=== PATIENT | male | born 1940 | race Two or more races ===

== ENCOUNTER 2020-03-15 07:28 | Day surgery (SDC) | payer MEDICARE, SELFPAY ==
[2020-03-15 07:25] VITALS: BP 112/69; PULSE 57; RESP 18; TEMP 36.5; O2SAT 97
[2020-03-15] MEDS: Tropicam./Phenyleph. (1/2.5%) 5 ML BTL OD ×3 (07:53→08:03)
[2020-03-15] MEDS: Lidocaine 2% Jelly 6 ML SYR (08:50)
[2020-03-15] MEDS: Povidone-Iodine Ophth 30 ML BTL (08:50)
[2020-03-15] MEDS: Tetracaine 0.5% 4 ML BTL OD (08:50)
[2020-03-15] MEDS: Lidocaine 1% Pres-Free 5 ML VIAL (08:55)
[2020-03-15] MEDS: Duovisc Viscoelastic System EACH 1 EACH (08:55)
[2020-03-15] MEDS: Balanced Salt Soln.-PLUS 500 ML BAG (08:55)
[2020-03-15] MEDS: Moxifloxacin-PF 1 MG/ML VIAL (09:13)
--- NOTE | 2020-03-15 09:19 | W.PM.DSUDISC ---
Discharge Plan Disposition Patient Disposition: HOME Condition: Good Discharge Details Attending Provider: Emmanuel Melgoza Primary Care Provider: Rodrigue Gonzalez Home Meds and New Rx's Prescriptions: No Action saw palmetto 80 mg Capsule 40 mg PO DAILY RF: 0 calcium carbonate [Calcium 500] 500 mg calcium (1,250 mg) Tablet 500 mg PO DAILY RF: 0 triamcinolone acetonide 0.1 % Cream 1 applic TOPICAL BID RF: 0 Discharge Instructions Stand Alone Forms: Post-op Topical Cataract, Monica Mcginnis (DSU) Discharge Orders Discharge Orders: Discharge Order (Routine); Ordered 03/15/20 Ordered By: Emmanuel Melgoza DS: Diagnosis Discharge Diagnosis (1) Nuclear sclerotic cataract of right eye: Status: Resolved
--- NOTE | 2020-03-15 09:21 | W.PM.OP ---
Date of service: 03/15/20 Time of Service: 09:21 Operative Note Operative Note DATE OF PROCEDURE: 03/15/20 PRE-OP DIAGNOSIS: Nuclear cataract, right eye POST-OP DIAGNOSIS: same PROCEDURE: Cataract extraction using phacoemulsification with intraocular lens implant, right eye SURGEON: Emmanuel Melgoza ANESTHESIA: MAC and local (sub-tenon's anesthetic infiltration) ESTIMATED BLOOD LOSS: 0 PATHOLOGY: none sent COMPLICATIONS: None Patient was transported to: same day Patient's condition: stable Implants: Dragan [employer]agan [employer] / [employer] Tecnis [id number] intraocular lens Indications: Progressive decreased vision due to cataract, right eye Procedure Description: CATARACT SURGERY OPERATIVE REPORT PREOPERATIVE DIAGNOSIS: Nuclear cataract, right eye POSTOPERATIVE DIAGNOSIS: Same OPERATION: Cataract extraction using phacoemulsification with posterior chamber intraocular lens implant, right eye. IOL: IOL Educational Manager/Model: [employer] Vision / KEYON Tecnis ZCB00 IOL Power: + +20.50 diopters IOL Serial Number: [id number] Optic Diameter: 6.0mm Haptic/Overall Diameter: 13.0mm PHACO INFO: Willy P[employer]Tesla Magnetic Therapiesurion Vision System with OZil and Active Fluidics Cumulative Dispersed Energy (CDE): 15.34 seconds SURGEON: Emmanuel Melgoza MD, POLLY ANESTHESIA: Monitored Anesthesia Care (MAC), with local sub-tenon's anesthetic infiltration COMPLICATIONS: None SPECIMENS: None INDICATIONS FOR PROCEDURE: The patient is a 79-year-old gentleman with history of diminished visual acuity in his right eye. He is noted to have a moderate nuclear cataract. The option of cataract surgery was offered to the patient and he wished to proceed. PROCEDURE: The correct surgical eye was identified and marked as the right eye and the pupil was dilated in the preoperative area using mydriatics and cycloplegics. The dilated pupil size was 6.5 mm. No oral sedation was given the patient was brought to the operating room where cardiopulmonary monitoring was instituted and surgical time-out was performed, confirming the correct operative eye and IOL power. Topical anesthesia was administered and ophthalmic povidone-iodine 5% was instilled into the conjunctival fornices. Lidocaine gel was applied to the cornea and the jody-ocular area was prepped with Betadine 10% solution and draped in the usual sterile fashion for intraocular surgery, including an aperture drape. A Tegaderm transparent film dressing was cut in half and used to cover the lashes and lid margins. Care was taken to sequester the lashes and lid margins under the Tegaderm dressing. A lid speculum was placed between the lids of the operative eye and the Narendra-Garrick operating microscope was maneuvered into position. Stephen scissors were then used to make a conjunctival buttonhole approximately 6mm posterior to the limbus in the inferonasal quadrant. Blunt dissection was carried out to expose bare sclera, and a blunt-tipped sub-tenon?s anesthesia cannula was introduced and passed posteriorly along the globe where non-preserved plain lidocaine was injected into posterior sub-Tenon?s space. A sideport knife was used to make a paracentesis port inferiortemporally. Intraocular phenylephrine/lidocaine was injected into the anterior chamber. The anterior chamber was then filled with viscoelastic. A 2.4mm keratome knife was used to create a half-thickness groove at the limbus and then to construct a three-plane near-clear corneal tunnel extending 2.0mm into clear cornea in the superiortemporal position. . A flap was raised on the anterior capsule and capsulorhexis forceps were used to complete a continuous curvilinear capsulorhexis of 5.0 mm. Balanced salt solution was then used to perform cortical cleaving hydrodissection and nuclear hydrodelineation until the lens could be freely rotated within the capsular bag. The lens nucleus was then disassembled and removed within the capsular bag and iris plane using phacoemulsification. Residual cortical material was removed using the I/A handpiece. The posterior capsule was carefully polished to remove as much residual lens epithelial cells as safely possible. The capsular bag was then inflated and the anterior chamber deepened with viscoelastic. The lens implant described above was inserted into the capsular bag using the KEYON Bethesda Injector. A Kuglen hook was used to dial the IOL into position. Residual viscoelastic was then removed first from posterior to the IOL, then from the anterior chamber using the I/A handpiece. The lens implant was noted to center nicely within the capsular bag. The incisions were stromally hydrated, and the anterior chamber was reformed using BSS. Then 0.5cc of moxifloxacin 1.0mg/ml were injected into the capsular bag and anterior chamber. The incisions were checked with a Weck spear and found to be secure. Several drops of ophthalmic povidone-iodine 5% were then applied to the eye followed by two drops of Imprimis combination prednisolone/moxifloxacin/nepafenac solution. The drapes were removed and a clear plastic protective eye shield was placed over the eye. The patient was then returned to [facility] Surgery in stable condition.
== END 2020-03-15 09:50 | disposition home or self-care (01) ==
PROVIDERS: PCP Internal Medicine; Visit Provider Ophthalmology
PROC: (CPT 66984; principal; 2020-03-15 09:00)
DX: H25.11 Age-related nuclear cataract, right eye (principal)
CPT/HCPCS: 66984; V2632

== ENCOUNTER 2022-01-06 09:17 | Outpatient (REF) | payer MEDICARE, SELFPAY ==
[2022-01-06 17:01] LABS: Calculated LDL 112 mg/dL (<100); Cholesterol 207 mg/dL (<200); Glucose 93 mg/dL (74-106); HDL Cholesterol 83 mg/dL (40-60); Triglyceride 63 mg/dL (<150)
[2022-01-08 08:48] LABS: Lyme Ab w Rflx to Lyme Confirm Negative (Negative)
[2022-01-08 14:45] LABS: Apolipoprotein B, S 77 mg/dL
[2022-01-10 15:19] LABS: Anaplasma phagocytophilum Negative (Negative); B. miyamotoi PCR Negative (Negative); Babesia divergens/MO-1 Negative (Negative); Babesia duncani Negative (Negative); Babesia microti Negative (Negative); Ehrlichia chaffeensis Negative (Negative); Ehrlichia ewingii/canis Negative (Negative); Ehrlichia muris eauclairensis Negative (Negative)
== END 2022-01-06 09:18 | disposition home or self-care (01) ==
LOC: NCHCN 09:17
PROVIDERS: Family Medicine; PCP Internal Medicine; Visit Provider Internal Medicine
DX: M10.9 Gout, unspecified (principal); L11.1 Transient acantholytic dermatosis [Grover]; N40.1 Benign prostatic hyperplasia with lower urinary tract symptoms; E78.89 Other lipoprotein metabolism disorders; Z11.8 Encounter for screening for other infectious and parasitic diseases; R79.89 Other specified abnormal findings of blood chemistry
CPT/HCPCS: 80061; 82172; 82947; 87798; 86618

== ENCOUNTER 2022-02-03 11:29 | Emergency (ER) | payer MEDICARE, SELFPAY ==
[2022-02-03 11:33] VITALS: BP 112/61; PULSE 76; RESP 20; TEMP 36.8; O2SAT 95
--- NOTE | 2022-02-03 12:04 | W.ED.GENAD ---
Discharge Plan Disposition Patient Disposition: HOME Condition: Stable Discharge Details Clinical Impression: Pneumonia Primary Care Provider: Temo Zaragoza ED Provider: Barbara Jimenez Home Meds and New Rx's Prescriptions: New amoxicillin-pot clavulanate 875-125 mg tablet 1 tab PO BID 7 Days Qty: 14 0RF benzonatate 100 mg capsule 100 mg PO TID PRN (Reason: cough) Qty: 10 0RF albuterol sulfate 90 mcg/actuation HFA aerosol inhaler 2 puff inhalation Q6H PRN (Reason: shortness of breath or wheezing) Qty: 8.5 0RF Continued vit D3-folic qcrf-J0-D2-B12 2,000-800-0.32 unit-mcg-mg Tablet PO saw palmetto 80 mg Capsule 40 mg PO DAILY calcium carbonate [Calcium 500] 500 mg calcium (1,250 mg) Tablet 500 mg PO DAILY triamcinolone acetonide 0.1 % Cream 1 applic TOPICAL BID Discharge Instructions Instructions: Pneumonia (ED) Additional Instructions: Your chest x-ray today showed that you have a left lower lobe pneumonia. Your COVID, influenza and RSV test today are negative. Prescriptions for antibiotics, and inhaler and cough medication have been sent electronically to your pharmacy to take as directed. Drink plenty of fluids and get plenty of rest. Follow-up with your primary care doctor in 1 week. Return to the emergency department with any worsening or new concerning symptoms. Discharge Data Discharge Date/Time-TO BE ENTERED AT DEPARTURE: 02/03/22 15:29 Discharge Physician: Barbara Jimenez Medical Decision Making 1145 -- 81-year-old male with a history of osteoarthritis, gout and BPH presents for intermittent fever, productive cough and shortness of breath for the past week. Denies pleuritic chest pain at this time. Vitals within normal limits. O2 saturations 95% on room air. Patient coughing during lung exam and some minimal wheeze noted but this cleared and lung sounds clear throughout on reexam. Normal ENT exam. Differential diagnosis includes COVID, influenza, bronchitis or pneumonia. History and presentation does not appear consistent with ACS, PE or dissection. Will give a DuoNeb, fluvid swab and chest x-ray and reassess. 1435 -- Pt reassessed -- he admits to some improvement of cough after DuoNeb. Reassessment of lung sounds, no wheezing noted. His oxygen saturation is mid-high 90s on room air. Patient is sitting comfortably in the room reading a book and appears in no acute distress. Fluvid negative. CXR notes a LLL infiltrate. Patient was given a dose of Augmentin here and prescriptions for Augmentin, cough medication and inhaler were sent electronically to his pharmacy. Advised to increase fluids and rest. Advised to follow up with the primary care doctor for re-evaluation. Usual and customary return precautions given prior to discharge. Medical Records Medical records reviewed: Yes I reviewed the patient's medical records. Imaging Data Radiologic Study: Radiologist's impression: XR CHEST 2V PA ? LATERAL CLINICAL HISTORY: ? cough, r/o acute disease. ? TECHNIQUE:? 2D digital imaging was performed. COMPARISON:? CR CHEST 2 VIEWS PA,LAT from 10/03/2012 FINDINGS: 2 views: Heart size is normal.? The mediastinum is not widened. Hyperinflation again noted.? There appears to be some infiltrate in the left lower lobe retrocardiac region.? Right lung is clear.? Mild blunting of left costophrenic angle. No pneumothorax.? No pulmonary edema. IMPRESSION: Left lower lobe infiltrate.? Possible small left pleural effusion. Lab Data Lab results reviewed: Yes I reviewed the patient's lab results. Labs: Laboratory Tests Range/Units 02/03/22 12:32 COVID-19 Source Not Applicable SARS-CoV-2 (PCR) (Negative) Negative Influenza Type A (PCR) (Negative) Negative Influenza Type B (PCR) (Negative) Negative RSV (PCR) (Negative) Negative HPI General Mode of arrival: ambulatory. Date/Time Provider Initiated Documentation: 02/03/22 11:30. Limitations to Documentation: no limitations. Information obtained by: patient. HPI Narrative: Patient is an 81yo M who presents to the ED w/ a c/o productive cough, shortness of breath and fatigue for the past week. Patient states he traveled to [place] recently and developed a cold with symptoms of runny nose and cough. He states his developed similar symptoms but then recovered. He states since then his cough has worsened and is productive of green sputum and he has become more short of breath. Patient states when he went to take his dogs out for a walk he became more fatigued and short of breath. He states he has had low-grade fevers of 99-100. He is taking qtpk-frk-vpxqbcg cough and cold medication without relief. He has taken 3 at home COVID test which were negative. Related Data Home Medications Medication Instructions Recorded Confirmed calcium carbonate 500 mg calcium 500 mg PO DAILY 03/13/20 03/15/20 (1,250 mg) tablet (Calcium 500) saw palmetto 80 mg capsule 40 mg PO DAILY 03/13/20 03/15/20 triamcinolone acetonide 0.1 % 1 applic topical BID 03/14/20 03/15/20 topical cream albuterol sulfate 90 mcg/actuation 2 puff inhalation Q6H PRN 02/03/22 aerosol inhaler shortness of breath or wheezing #8.5 grams amoxicillin 875 mg-potassium 1 tab PO BID 7 days #14 tabs 02/03/22 clavulanate 125 mg tablet benzonatate 100 mg capsule 100 mg PO TID PRN cough #10 caps 02/03/22 vit D3-folic acid-vit B2-B6-B12 tab PO 02/03/22 2,000 unit-800 mcg-0.32 mg tablet Previous Rx's Medication Instructions Recorded albuterol sulfate 90 mcg/actuation 2 puff inhalation Q6H PRN 02/03/22 aerosol inhaler shortness of breath or wheezing #8.5 grams amoxicillin 875 mg-potassium 1 tab PO BID 7 days #14 tabs 02/03/22 clavulanate 125 mg tablet benzonatate 100 mg capsule 100 mg PO TID PRN cough #10 caps 02/03/22 Allergies Allergy/AdvReac Type Severity Reaction Status Date / Time Sulfa (Sulfonamide AdvReac Intermediate GI UPSET Unverified 02/03/22 11:38 Antibiotics) General Stated Complaint: RespSymp GAY: 3 Review of Systems All systems reviewed & are unremarkable except as noted in HPI and below Constitutional Constitutional: Reports as per HPI, Denies chills and Denies fever(s) Eyes Eyes: Denies blurry vision ENT Ears, Nose, Mouth, and Throat: Denies dizziness, Denies sore throat and Denies throat swelling Cardiovascular Cardiovascular: Denies chest pain and Reports dyspnea Respiratory Respiratory: Reports cough and Reports dyspnea Gastrointestinal Gastrointestinal: Denies abdominal pain, Denies diarrhea and Denies vomiting Genitourinary Genitourinary: Denies hematuria and Denies dysuria Musculoskeletal Musculoskeletal: Denies back pain and Denies numbness Integumentary/Breasts Skin/Breast: Denies lesions and Denies rash Neurologic Neurologic: Denies dizziness, Denies localized weakness and Denies numbness Allergic/Immunologic Allergic/Immunologic: Denies throat swelling PFSH All Active Problems (Updated 02/03/22 @ 14:50 by Barbara Jimenez DO) Pneumonia (Acute) Medical History (Updated 02/03/22 @ 14:50 by Barbara Jimenez DO) Arthritis Basal cell carcinoma BPH with obstruction/lower urinary tract symptoms Cataract, right DJD (degenerative joint disease) Gout Jesus Manuel's disease History of tobacco use Hx of adenomatous colonic polyps Low back pain Osteoarthritis of left knee Perennial allergic rhinitis Right hip pain Umbilical hernia Surgical History (Updated 03/15/20 @ 09:20 by Emmanuel Melgoza MD) Colonoscopy - MAC (10/05/17) Skin Cancer Removal BCC [place]OVED FROM [facility]ST [facility] [place]SE[place] [place] [facility] Family History Mother , OLD AGE at age 96. No problems noted. Father Essential hypertension Stroke Sister No problems noted. Son No problems noted. Son No problems noted. FAMILY HISTORY Essential hypertension Social History Smoking/Tobacco Use Status: Former Tobacco Use Quit Date: 04/12/84 Smoking risk assessment performed?: Yes Alcohol Intake: former Drug use: Never Substance use type: does not use Do you feel safe at home: Yes Do you feel safe in your relationship?: Yes Exam Const General: cooperative and no acute distress Orientation: alert, awake and oriented x3 HENMT Head: normal to inspection Ears: hearing grossly normal bilaterally, external ears normal and TM's normal bilaterally General nose exam: external nose normal Face and sinus: normal facial exam Mouth: oral mucosae normal Throat: posterior oropharynx normal Eyes General: appearance normal, both eyes and all related structures Pupils: PERRL EOM: EOM intact bilaterally Neck Neck: normal visual inspection and No submandibular swelling Lymphatic: no lymphadenopathy noted Chest Chest: normal inspection of the chest and no tenderness Resp Effort & Inspection: normal respiratory effort and able to speak in complete sentences Auscultation: clear to auscultation bilaterally Cardio Rate: regular rate Rhythm: regular rhythm GI Inspection: normal to inspection Palpation: soft, not firm, not rigid and nontender Auscultation: normal bowel sounds Male General Exam: Yes normal external exam Skin General skin exam: no rashes or lesions noted Neuro General: patient alert, patient awake and patient oriented x3 Cognition: normal cognition Speech: speech normal Motor: muscle tone normal throughout Sensory Exam: no sensory deficits noted Extrem General: normal to inspection and full ROM Psych Appearance: grossly normal Mental Status: mental status grossly normal Speech and Movement: speech and movement normal Affect: normal affect Course Vital Signs Vital signs: Vital Signs Temperature 98.3 F 02/03/22 11:33 Pulse 76 02/03/22 11:33 Respiratory Rate 20 02/03/22 11:33 Blood Pressure 112/61 02/03/22 11:33 Pulse Oximetry 95 02/03/22 11:33 Temperature 98.3 F 02/03/22 11:33 Temperature Source Oral 02/03/22 11:33 Pulse 76 02/03/22 11:33 Respiratory Rate 20 02/03/22 11:33 Respiratory Effort Non-Labored 02/03/22 11:43 Respiratory Depth Normal 02/03/22 11:43 Blood Pressure 112/61 02/03/22 11:33 Blood Pressure Position Sitting 02/03/22 11:33 Pulse Oximetry 95 02/03/22 11:33 Oxygen Delivery Method Room Air 02/03/22 11:33 Oxygen Flow Rate 0 02/03/22 11:33
--- NOTE | 2022-02-03 12:15 | DI.RAD_ITS ---
Exam(s) XR CHEST 2V PA LATERAL EXAM: XR CHEST 2V PA LATERAL CLINICAL HISTORY: cough, r/o acute disease. TECHNIQUE: 2D digital imaging was performed. COMPARISON: CR CHEST 2 VIEWS PA,LAT from 10/03/2012 FINDINGS: 2 views: Heart size is normal. The mediastinum is not widened. Hyperinflation again noted. There appears to be some infiltrate in the left lower lobe retrocardiac region. Right lung is clear. Mild blunting of left costophrenic angle. No pneumothorax. No pulmonary edema. IMPRESSION: Left lower lobe infiltrate. Possible small left pleural effusion. DATA REPOSITORY: RADIATION DOSE DELIVERED:
[2022-02-03] MEDS: Albuterol/Ipratropium 3 ML UPD VIAL UPD (12:39)
[2022-02-03 13:21] LABS: COVID-19 PCR Negative (Negative); Influenza A PCR Negative (Negative); Influenza B PCR Negative (Negative); RSV PCR Negative (Negative)
[2022-02-03] MEDS: Amoxicillin 875/Clav. 125 TAB PO (14:53)
== END 2022-02-03 15:29 | disposition home or self-care (01) ==
PROVIDERS: Emergency Provider Physician Assistant; PCP Family Medicine
DX: J18.9 Pneumonia, unspecified organism (principal); Z20.822 Contact with and (suspected) exposure to COVID-19; Z87.891 Personal history of nicotine dependence
CPT/HCPCS: 87637; 94640; 99283; 99284; 71046; J7620

== ENCOUNTER 2022-09-09 14:42 | Outpatient (REF) | payer MEDICARE, SELFPAY ==
[2022-09-09 21:00] LABS: Abs Immature Grans 0.03 10^3/uL (0.0-0.06); Absolute Basophil Count 0.06 10^3/uL (0.0-0.2); Absolute Eosinophil Count 0.14 10^3/uL (0.0-0.7); Absolute Lymphocyte Count 3.41 10^3/uL (1.2-3.4); Absolute Monocyte Count 1.41 10^3/uL (0.1-0.8); Absolute Neutrophil Count 4.74 10^3/uL (1.2-6.7); Basophils % 0.6; Eosinophils % 1.4; HCT 45.3 % (40.0-50.0); HGB 14.6 g/dL (13.5-17.5); Immature Grans % 0.3; Lymphocytes % 34.8; MCH 29.3 pg (27.0-33.0); MCHC 32.2 % (32.0-36.0); MCV 91 fL (80-95); MPV 10.9 fL (8.0-11.0); Monocytes % 14.4; Neutrophils % 48.5; Platelet Count 278 10^3/uL (130-400); RBC 4.98 10^6/uL (4.36-5.78); RDW 13.3 % (11.8-14.1); RDW-SD 44.9 fL; WBC 9.79 10^3/uL (4.4-10.8)
[2022-09-09 21:26] LABS: ALT 30 U/L (16-63); AST 28 U/L (15-37); Albumin 3.4 g/dL (3.4-5.0); Alkaline Phosphatase 93 U/L (46-116); Anion Gap 8.1 mmol/L (3-11); BUN 17 mg/dL (7-18); Bilirubin, Total 0.3 mg/dL (0.2-1.0); CO2 29.9 mmol/L (21.0-32.0); CREATININE 1.1 mg/dL (0.70-1.30); Calcium 9.3 mg/dL (8.5-10.1); Chloride 102 mmol/L (98-107); Estimated GFR 67.86 (mL/min/1.73m2); Glucose 104 mg/dL (74-106); Potassium 4.7 mmol/L (3.5-5.1); Sodium 140 mmol/L (136-145); Total Protein 7.9 g/dL (6.4-8.2)
== END 2022-09-09 14:43 | disposition home or self-care (01) ==
LOC: NCHCN 14:42
PROVIDERS: PCP Family Medicine; Visit Provider Family Medicine
DX: R35.0 Frequency of micturition (principal); M25.511 Pain in right shoulder
CPT/HCPCS: 80053; 87077; 85025; 87086; 87186

== ENCOUNTER 2022-10-06 12:50 | Outpatient (REF) | payer MEDICARE, SELFPAY ==
[2022-10-08 10:11] LABS: Lyme Ab w Rflx to Lyme Confirm Negative (Negative)
[2022-10-10 22:08] LABS: Anaplasma phagocytophilum Negative (Negative); B. miyamotoi PCR Negative (Negative); Babesia divergens/MO-1 Negative (Negative); Babesia duncani Negative (Negative); Babesia microti Negative (Negative); Ehrlichia chaffeensis Negative (Negative); Ehrlichia ewingii/canis Negative (Negative); Ehrlichia muris eauclairensis Negative (Negative)
== END 2022-10-06 12:51 | disposition home or self-care (01) ==
LOC: NCHCN 12:50
PROVIDERS: PCP Family Medicine; Visit Provider Family Medicine
DX: M25.50 Pain in unspecified joint (principal)
CPT/HCPCS: 87798; 86618

== ENCOUNTER 2023-08-27 01:54 | Outpatient (CLI) | payer MEDICARE, SELFPAY ==
[2023-08-27 10:35] LABS: Abs Immature Grans 0.02 10^3/uL (0.0-0.06); Absolute Eosinophil Count 0.15 10^3/uL (0.0-0.7); Absolute Lymphocyte Count 6.19 10^3/uL (1.2-3.4); Basophils % 0.6 %; Eosinophils % 1.4 %; HCT 47.1 % (40.0-50.0); HGB 15.2 g/dL (13.5-17.5); Immature Grans % 0.2 %; Lymphocytes % 57.2 %; MCH 29.2 pg (27.0-33.0); MCHC 32.3 % (32.0-36.0); MCV 90 fL (80-95); MPV 11.1 fL (8.0-11.0); Monocytes % 5.5 %; Neutrophils % 35.1 %; Platelet Count 235 10^3/uL (130-400); RBC 5.21 10^6/uL (4.36-5.78); RDW 14.2 % (11.8-14.1); RDW-SD 47.7 fL; WBC 10.82 10^3/uL (4.4-10.8)
[2023-08-27 10:38] LABS: Absolute Basophil Count 0.06 10^3/uL (0.0-0.2)
[2023-08-27 10:45] LABS: Diff Comment Diff Reviewed; RBC Morphology Normal
[2023-08-27 11:04] LABS: ALT 25 U/L (16-63); AST 16 U/L (15-37); Albumin 3.7 g/dL (3.4-5.0); Alkaline Phosphatase 85 U/L (46-116); Anion Gap 6.6 mmol/L (3-11); BUN 19 mg/dL (7-18); Bilirubin, Total 0.6 mg/dL (0.2-1.0); CO2 30.4 mmol/L (21.0-32.0); CREATININE 1.1 mg/dL (0.70-1.30); Calcium 8.9 mg/dL (8.5-10.1); Calculated LDL 113 mg/dL (<100); Chloride 105 mmol/L (98-107); Cholesterol 227 mg/dL (<200); Estimated GFR 67.44 (mL/min/1.73m2); Glucose 102 mg/dL (74-106); HDL Cholesterol 102 mg/dL (40-60); Potassium 4.5 mmol/L (3.5-5.1); Sodium 142 mmol/L (136-145); Total Protein 7.3 g/dL (6.4-8.2); Triglyceride 60 mg/dL (<150)
== END 2023-08-27 01:55 | disposition home or self-care (01) ==
LOC: LBO 01:55
PROVIDERS: PCP Nurse Practitioner; Referring Provider Nurse Practitioner; Visit Provider Nurse Practitioner
DX: R53.83 Other fatigue (principal); R63.4 Abnormal weight loss; E78.5 Hyperlipidemia, unspecified
CPT/HCPCS: 36415; 80053; 80061; 84443; 85025

== ENCOUNTER → 2023-10-07 09:27 | Outpatient (BNVA) | payer MEDICARE, SELFPAY | PROVIDERS: PCP Nurse Practitioner; Visit Provider Physical Therapy Assistant | DX: Z12.11 Encounter for screening for malignant neoplasm of colon (principal); Z86.010 Personal history of colon polyps ==

== ENCOUNTER 2023-10-08 12:45 | Day surgery (SDC) | payer MEDICARE, SELFPAY ==
[2023-10-08 13:08] VITALS: BP 116/67; PULSE 46; RESP 16; TEMP 36.3; O2SAT 97
--- NOTE | 2023-10-08 13:39 | W.ANESPRE ---
General Info Date of Service Date Performed: 10/08/23 Height: 5 ft 11.5 in Weight: 77.3 kg Body Mass Index (BMI): 23.4 Surgical Procedure: Operation Date: 10/08/23 14:40 Proposed Procedure Side Surgeon p Cataract Extraction with IOL Implant Left Emmanuel Melgoza MD Meds Allergies and Home Medications Allergies Allergy/AdvReac Type Severity Reaction Status Date / Time Sulfa (Sulfonamide AdvReac Intermediate GI UPSET Verified 10/08/23 13:16 Antibiotics) Home Medication Medication Instructions Recorded triamcinolone acetonide 0.1 % 1 applic topical BID #30 grams 11/19/22 topical cream calcium carbonate (Calcium 500) 1,000 mg PO DAILY 07/28/23 cholecalciferol (vitamin D3) 25 25 mcg PO DAILY 07/28/23 mcg (1,000 unit) capsule saw palmetto 450 mg capsule 450 mg PO DAILY 07/28/23 bisacodyl 5 mg tablet,delayed 5 mg PO ONCE #4 tabs 10/07/23 release (Dulcolax (bisacodyl)) polyethylene glycol 3350 17 17 g PO ONCE #238 grams 10/07/23 gram/dose oral powder Current Visit Medications: Current Medications Generic Name Dose Route Start Last Admin Trade Name Freq PRN Reason Stop Dose Admin Acetaminophen 1,000 mg 10/08/23 06:00 Acetaminophen 500 Mg Tab PO 11/07/23 05:59 Q4H PRN PRN Balanced Salt Solution 500 ml 10/08/23 06:00 Balanced Salt Soln.-Plus 500 Ml Bag OP 11/07/23 05:59 DIRECTED [facility] Miscellaneous Medication 0 ml 10/08/23 06:00 Prednisolone 1%, Moxifloxacin 0.5%, Bromfenac 0.09% 5ml Btl OS 11/07/23 05:59 DIRECTED [facility] Miscellaneous Medication 0 ml 10/08/23 06:00 10/08/23 13:30 Tropicam./Phenyleph. (1/2.5%) 10 Ml Btl OS 11/07/23 05:59 1 drp DIRECTED [facility] Administration Tetracaine HCl 0 ml 10/08/23 06:00 Tetracaine 0.5% 4 Ml Btl OS 11/07/23 05:59 DIRECTED [facility] PFSH Active Problems Active Problems: Problem Status Onset Code Cortical age-related cataract, left eye H25.012 Nuclear age-related cataract, left eye H25.12 Cataract of left eye H26.9 Contact dermatitis L25.9 Nuclear sclerotic cataract of right eye H25.11 Medical History Medical History Basal cell carcinoma of face BCC [place] [place] [facility] Frequent unifocal PVCs Hx of adenomatous colonic polyps (10/05/17) Perennial allergic rhinitis Cataract, right Gout Jesus Manuel's disease Right hip pain Osteoarthritis of left knee DJD (degenerative joint disease) Umbilical hernia BPH with obstruction/lower urinary tract symptoms Arthritis History of tobacco use Low back pain Surgical History Surgical History H/O hemorrhoidectomy Skin Cancer Removal BCC [place] [facility] [place] Colonoscopy - MAC (10/05/17) Tobacco Smoking/Tobacco Use Status: Former Tobacco Use Alcohol Alcohol Intake: never Substance Use Substance use: Never Substance use type: does not use Vital Signs and Lab Results Vital Signs Most Recent Vital Signs in EMR: Most Recent Vital Signs Temp Pulse Resp BP Pulse Ox 36.3 C L 46 L 16 116/67 97 10/08/23 13:08 10/08/23 13:08 10/08/23 13:08 10/08/23 13:08 10/08/23 13:08 Lab Results Blood Type / Crossmatch: No Data to Display Complete Blood Count: No Data to Display Complete Metabolic Panel: No Data to Display Liver Function Panel: No Data to Display Coagulation Panel: No Data to Display Cardiac Panel: No Data to Display Arterial Blood Gas: No Data to Display Venous Blood Gas: No Data to Display Pancreas Panel: No Data to Display Thyroid Panel: No Data to Display Infectious Disease: No Data to Display Blood Cultures: No Data to Display Toxicology Panel: No Data to Display Imaging and Studies Imaging and Studies Study information below may be from another EMR and interpreted by another provider. Please see original notes in EMR for more complete details. Pulmonary Function Summary: PATIENT NAME: SAMREEN MENDOZA : 1940 PHYSICIAN: ANA MARIA JERONIMO DATE OF SERVICE: 10/03/12 [facility] Pulmonary Function Test Patient: Samreen Soto Date: 10/03/2012 Provider: Merlene Claudio Tech: GABY MR#: [id number] V#: [id number] : 1940 Height: 72.00 in Weight: 177.00 lbs Age: 72 Sex: Male Diagnosis: Dyspnea and wheezing stemming from pneumonia 3-4 months ago. Quit smoking 27 yrs ago Pulmonary Medications: Albuterol (not used before the PFT) Post Test Comments: EFFORT: Good patient effort and cooperation. Post bronchodilator study was not done due to normal spirormetry Pre Broncodilator Post Bronchodilator Cresencio Prd LLN %Prd Cresencio %Prd %Chg SPIROMETRY FVC (L) 5.60 4.73 3.95 118 FEV1 (L) 4.01 3.48 2.91 115 FEV1/FVC (%) 72 73 61 98 FEF 25-75% (L/sec) 2.85 2.61 2.18 109 Peak Flow (L/sec) 7.84 8.72 7.28 90 FIVC (L) 5.16 FIF Max (L/sec) 6.15 LUNG VOLUMES SVC (L) 5.77 4.85 4.05 119 IC (L) 3.94 3.45 2.88 114 ERV (L) 1.83 1.40 1.17 130 TGV (L) 4.21 3.98 3.18 106 RV (Pleth) (L) 2.38 2.58 2.06 92 TLC (Pleth) (L) 8.15 7.43 5.94 110 RV/TLC (Pleth) (%) 29 36 29 81 DIFFUSION DLCOunc 31.06 35.03 28.02 89 DL/VA 3.89 4.71 3.77 83 VA (L) 7.99 7.43 6.20 108 AIRWAYS Raw (cmH2O/L/s) 1.53 1.45 1.21 105 Gaw (L/s/cmH2O) 0.66 1.03 0.86 64 sRaw (cmH2O*s) 5.86 4.76 3.97 123 sGaw (1/cmH2O*s) 0.17 0.20 0.17 85 INTERPRETATION DATE OF SERVICE: October 03, 2012. PRIMARY CARE PROVIDER: Merlene Claudio, N.P. Spirometry shows no evidence of obstructive airways disease, no bronchodilator testing was carried out. Lung volumes show no evidence of restriction. Diffusion capacity normal. Airways resistance normal. IMPRESSION: Normal pre-bronchodilator pulmonary function test. Clinical correlation recommended. Dictated by: ANA MARIA JERONIMO Dict Date: 10/07/12 Dict Time: 399 <Electronically signed by ANA MARIA JERONIMO> Date: 10/17/12 Anesthesia Assessment and Plan Anesthesia History Personal History: No History of Anesthesia Complications Family History: No Family History of Anesthesia Complications Exercise Tolerance Exercise Tolerance: Metabolic Equivalents>4 Pertinent Negatives Pertinent Negatives: No Symptoms of GERD, No Major Pulmonary Symptoms or Complaints and No History of CVA/TIA Cardiac & Pulmonary Exam Cardiac Exam: Normal S1/S2 Heart Sounds Pulmonary Exam: Clear Bilateral Breath Sounds Implantable Cardiac Device Does patient have a Pacemaker or an ICD?: No Airway Exam Known Difficult Airway: No Mallampati Class: 2 Mouth Opening: Normal (> 3cm) Thyromental Distance: Greater than 3 cm Neck Range of Motion: Full ROM Neck Circumference: Normal Teeth Condition: Normal Dentition ASA Classification ASA Score: ASA 2 Emergency Case?: No NPO Status NPO Status: NPO Clears >2 hours, Solids >8 hours Anesthesia Plan Resuscitation Status: Full Code Anesthesia Technique: General Anesthesia Airway Planned: Natural Airway Monitors Used: Standard Monitors
[2023-10-08 14:10] VITALS: BMI 23.4
[2023-10-08] MEDS: Tetracaine 0.5% 4 ML BTL OS (14:16)
[2023-10-08] MEDS: Povidone-Iodine Ophth 30 ML BTL (14:17)
[2023-10-08] MEDS: Duovisc Viscoelastic System EACH 1 EACH (14:21)
[2023-10-08] MEDS: Balanced Salt Soln.-PLUS 500 ML BAG OP (14:21)
[2023-10-08] MEDS: Lidocaine 1% Pres-Free 5 ML VIAL (14:22)
[2023-10-08 14:40] VITALS: BP 124/78; PULSE 59; RESP 16; TEMP 36.3; O2SAT 98
--- NOTE | 2023-10-08 14:41 | W.PM.DSUDISC ---
Date of service: 10/08/23 Time of Service: 14:41 Discharge Plan Disposition Patient Disposition: Home Discharge Details Attending Provider: Emmanuel Melgoza Primary Care Provider: Rebeca Lange Home Meds and New Rx's Prescriptions: No Action triamcinolone acetonide 0.1 % cream 1 applic TOPICAL BID Qty: 30 0RF bisacodyl [Dulcolax (bisacodyl)] 5 mg tablet,delayed release (DR/EC) 5 mg PO ONCE Qty: 4 0RF Patient Comments: Pt Having colonoscopy 10/13/23 Rx Instructions: Take per colonoscopy instructions provided by ordering providers office polyethylene glycol 3350 17 gram/dose powder 17 g PO ONCE Qty: 238 0RF Patient Comments: pt has colonoscopy on 10/13/23 Rx Instructions: Take per colonoscopy instructions provided by ordering providers office saw palmetto 450 mg capsule 450 mg PO DAILY Rx Instructions: give with food (meal/snack) cholecalciferol (vitamin D3) 25 mcg (1,000 unit) capsule 25 mcg PO DAILY calcium carbonate [Calcium 500] 500 mg calcium (1,250 mg) tablet 1,000 mg PO DAILY Discharge Instructions Stand Alone Forms: DSU Post-Op Cataract, Monica Calixtoey (DSU) Discharge Orders Discharge Orders: Discharge Order (Routine); Ordered 10/08/23 Ordered By: Emmanuel Melgoza DS: Diagnosis Discharge Diagnosis (1) Cortical age-related cataract, left eye: Status: Resolved (2) Nuclear age-related cataract, left eye: Status: Resolved
--- NOTE | 2023-10-08 14:42 | ROE_ITS ---
Date of service: 10/08/23 Time of Service: 14:42 Operative Note Operative Note DATE OF PROCEDURE: 10/08/23 PRE-OP DIAGNOSIS: Nuclear/cortical cataract, left eye POST-OP DIAGNOSIS: same PROCEDURE: Cataract extraction using phacoemulsification with intraocular lens implant, left eye SURGEON: Emmanuel Melgoza ANESTHESIA TYPE: Local By Surgeon and MAC Refer to Anesthesia Record PATHOLOGY: none sent COMPLICATIONS: None Patient was transported to: same day Patient's condition: stable Implants: Dragan and Dragan Tecnis Eyhance [id number] Indications: Progressive decreased vision due to cataract, left eye Procedure Description: CATARACT SURGERY OPERATIVE REPORT PREOPERATIVE DIAGNOSIS: 1. Nuclear/cortical cataract, left eye POSTOPERATIVE DIAGNOSIS: Same OPERATION: 1. Cataract extraction using phacoemulsification with posterior chamber intraocular lens implant, left eye. IOL: IOL Bulk Filler/Model: Dragan & Dragan Tecnis Eyhance DIB00 IOL Power: + 22.0 diopters IOL Serial Number: [id number] Optic Diameter: 6.0 mm Haptic/Overall Diameter: 13.0 mm PHACO INFO: WillyiNEWiT Vision System with OZil and Active Fluidics Cumulative Dispersed Energy (CDE): 8.65 seconds SURGEON: Emmanuel Melgoza MD, POLLY ANESTHESIA: Monitored A [facility] ([facility]), with local sub-tenon's anesthetic infiltration COMPLICATIONS: None SPECIMENS: None INDICATIONS FOR PROCEDURE: The patient is an 83-year-old male with history of diminished visual acuity in his left eye secondary to the development of nuclear/cortical cataract. He is presenting on cataract surgery in the right eye and 20/20 with postoperative refractive target of [place]. He is now 20/20 uncorrected in the right eye. He has myopic in the left eye and is asymptomatic cataract there. He desires cataract surgery and attempt to improve and maximize his vision, but with postoperative refractive target of -1.25-1.5 diopters for a mild monovision result. See office notes for detailed information. PROCEDURE: The correct surgical eye was identified and marked as the left eye and the pupil was dilated in the preoperative area using mydriatics and cycloplegics. The dilated pupil size was 6.0 mm. The patient elected to proceed without oral sedation. The patient was brought to the operating room where cardiopulmonary monitoring was instituted and surgical time-out was performed, confirming the correct operative eye and IOL power. Topical anesthesia was administered and ophthalmic povidone-iodine 5% was instilled into the conjunctival fornices. The jody-ocular area was prepped with Betadine 10% solution and draped in the usual sterile fashion for intraocular surgery, including an aperture drape. A Tegaderm transparent film dressing was cut in half and used to cover the lashes and lid margins. Care was taken to sequester the lashes and lid margins under the Tegaderm dressing. A lid speculum was placed between the lids of the operative eye and the Willy LuxOR Revalia operating microscope was maneuvered into position. Stephen scissors were then used to make a conjunctival buttonhole approximately 6mm posterior to the limbus in the inferonasal quadrant. Blunt dissection was carried out to expose bare sclera, and a blunt-tipped sub-tenon?s anesthesia cannula was introduced and passed posteriorly along the globe where non- preserved plain lidocaine was injected into posterior sub-Tenon?s space. A sideport knife was used to make a paracentesis port. Intraocular phenylephrine/lidocaine was injected into the anterior chamber.. The anterior chamber was filled with viscoelastic. A keratome knife was used to construct a 2-plane near-clear corneal tunnel extending 2.0mm into clear cornea. A flap was raised on the anterior capsule and capsulorhexis forceps were used to complete a continuous curvilinear capsulorhexis of 5.0 mm. Balanced salt solution was then used to perform cortical cleaving hydrodissection and nuclear hydrodelineation until the lens could be freely rotated within the capsular bag. The lens nucleus was then disassembled and removed within the capsular bag and iris plane using phacoemulsification. Residual cortical material was removed using the irrigation/aspiration handpiece. The posterior capsule was carefully polished to remove as much residual lens epithelial cells as safely possible. The capsular bag was then inflated and the anterior chamber deepened with viscoelastic. The lens implant described above was inserted into the capsular bag using the Dragan and Dragan Simplicity pre-loaded injector. A Kuglen hook was used to dial the IOL into position. Residual viscoelastic was then removed first from posterior to the IOL, then from the anterior chamber using the I/A handpiece. The lens implant was noted to center nicely within the capsular bag. The incisions were stromally hydrated, and the anterior chamber was reformed using BSS. Then 0.5cc of moxifloxacin 1.0mg/ml were injected into the capsular bag and anterior chamber. The incisions were checked with a Weck spear and found to be secure. Several drops of ophthalmic povidone-iodine 5% were then applied to the eye followed by two drops of Imprimis combination prednisolone/moxifloxacin/nepafenac solution. The drapes were removed and a clear plastic protective eye shield was placed over the eye. The patient was then returned to Same Day Surgery in stable condition.
--- NOTE | 2023-10-08 14:51 | W.ANESPOSTOP ---
Postoperative Evaluation Date, Time and Location Date Performed: 10/08/23 Time Performed: 14:51 Patient Location: Day Surgery Unit Vital Signs Most Recent Imported Vital Signs: Most Recent Vital Signs Temp Pulse Resp BP Pulse Ox 36.3 C L 59 L 16 124/78 98 10/08/23 14:40 10/08/23 14:40 10/08/23 14:40 10/08/23 14:40 10/08/23 14:40 Pain Score Most Recent Pain Score: Most Recent Pain Score Pain Level 0 10/08/23 14:40 Assessment Mental Status: Awake (Alert & Oriented to Patient Baseline) Airway and Respiratory Function: Patent airway with normal (patient baseline) respiratory exam Cardiovascular Function: Hemodynamically Stable Hydration Status: Adequately Hydrated Nausea & Vomiting: No Nausea or Vomiting Pain: Pt. Denies Any Pain Peripheral Nerve Block: Patient did not receive a nerve block
== END 2023-10-08 15:11 | disposition home or self-care (01) ==
LOC: SUR 12:45
PROVIDERS: PCP Nurse Practitioner; Visit Provider Ophthalmology
PROC: (CPT 66984; principal; 2023-10-08 14:30)
DX: H25.012 Cortical age-related cataract, left eye (principal); H25.12 Age-related nuclear cataract, left eye
CPT/HCPCS: 66984; 00123; V2632; J2003

== ENCOUNTER 2023-10-13 09:10 | Day surgery (SDC) | payer MEDICARE, SELFPAY ==
[2023-10-13 09:45] VITALS: BP 107/61; PULSE 54; RESP 16; TEMP 36.4; O2SAT 94
[2023-10-13] MEDS: Lactated Ringers 1,000 ML 80 ML IV (10:16)
--- NOTE | 2023-10-13 10:27 | ANES.PREOP_ITS ---
General Info Date of Service Date Performed: 10/13/23 Height: 5 ft 11.5 in Weight: 75.7 kg Body Mass Index (BMI): 22.9 Surgical Procedure: Operation Date: 10/13/23 10:50 Proposed Procedure Side Surgeon don Guadalupe MD Meds Allergies and Home Medications Allergies Allergy/AdvReac Type Severity Reaction Status Date / Time Sulfa (Sulfonamide AdvReac Intermediate GI UPSET Verified 10/13/23 10:00 Antibiotics) Home Medication Medication Instructions Recorded triamcinolone acetonide 0.1 % 1 applic topical BID #30 grams 11/19/22 topical cream calcium carbonate (Calcium 500) 1,000 mg PO DAILY 07/28/23 cholecalciferol (vitamin D3) 25 25 mcg PO DAILY 07/28/23 mcg (1,000 unit) capsule saw palmetto 450 mg capsule 450 mg PO DAILY 07/28/23 bisacodyl 5 mg tablet,delayed 5 mg PO ONCE #4 tabs 10/07/23 release (Dulcolax (bisacodyl)) polyethylene glycol 3350 17 17 g PO ONCE #238 grams 10/07/23 gram/dose oral powder Current Visit Medications: Current Medications Generic Name Dose Route Start Last Admin Trade Name Freq PRN Reason Stop Dose Admin Ringer's Solution 1,000 mls @ 80 mls/hr 10/13/23 06:00 10/13/23 10:16 IV 11/11/23 23:59 80 mls/hr INFUSION HENRIQUE Administration IV Miscellaneous Supplies 1 each 10/13/23 06:00 Iv Access IV 11/11/23 23:59 DIRECTED HENRIQUE Sodium Chloride 0 ml 10/13/23 06:00 Normal Saline Flush 10 Ml Syr IV 11/11/23 23:59 PRN PRN Sodium Chloride 0 ml 10/13/23 06:00 Normal Saline 10 Ml Vial IJ 11/11/23 23:59 DIRECTED PRN Sterile Water 0 ml 10/13/23 06:00 Water,Injection,Sterile 10 Ml Vial IJ 11/11/23 23:59 DIRECTED PRN PFSH Active Problems Active Problems: Problem Status Onset Code Cortical age-related cataract, left eye H25.012 Nuclear age-related cataract, left eye H25.12 Cataract of left eye H26.9 Contact dermatitis L25.9 Nuclear sclerotic cataract of right eye H25.11 Medical History Medical History Basal cell carcinoma of face BCC REMOVED FROM [facility] Frequent unifocal PVCs Hx of adenomatous colonic polyps (10/05/17) Perennial allergic rhinitis Cataract, right Gout [place]'s disease Right hip pain Osteoarthritis of left knee DJD (degenerative joint disease) Umbilical hernia BPH with obstruction/lower urinary tract symptoms Arthritis History of tobacco use Low back pain Surgical History Surgical History History of cataract surgery H/O hemorrhoidectomy Skin Cancer Removal BCC REMOVED FROM [facility] Colonoscopy - [facility] (10/05/17) Tobacco Smoking/Tobacco Use Status: Former Tobacco Use Alcohol Alcohol Intake: never Substance Use Substance use: Never Substance use type: does not use Vital Signs and Lab Results Vital Signs Most Recent Vital Signs in EMR: Most Recent Vital Signs Temp Pulse Resp BP Pulse Ox 36.4 C L 54 L 16 107/61 94 10/13/23 09:45 10/13/23 09:45 10/13/23 09:45 10/13/23 09:45 10/13/23 09:45 Lab Results Blood Type / Crossmatch: No Data to Display Complete Blood Count: No Data to Display Complete Metabolic Panel: No Data to Display Liver Function Panel: No Data to Display Coagulation Panel: No Data to Display Cardiac Panel: No Data to Display Arterial Blood Gas: No Data to Display Venous Blood Gas: No Data to Display Pancreas Panel: No Data to Display Thyroid Panel: No Data to Display Infectious Disease: No Data to Display Blood Cultures: No Data to Display Toxicology Panel: No Data to Display Imaging and Studies Imaging and Studies Study information below may be from another EMR and interpreted by another provider. Please see original notes in EMR for more complete details. Pulmonary Function Summary: PATIENT NAME: SAMREEN MENDOZA : 1940 PHYSICIAN: ANA MARIA JERONIMO DATE OF SERVICE: 10/03/12 [facility] Pulmonary Function Test Patient: Samreen Soto Date: 10/03/2012 Provider: Merlene Claudio Tech: GABY MR#: [id number] V#: [id number] : 1940 Height: 72.00 in Weight: 177.00 lbs Age: 72 Sex: Male Diagnosis: Dyspnea and wheezing stemming from pneumonia 3-4 months ago. Quit smoking 27 yrs ago Pulmonary Medications: Albuterol (not used before the PFT) Post Test Comments: EFFORT: Good patient effort and cooperation. Post bronchodilator study was not done due to normal spirormetry Pre Broncodilator Post Bronchodilator Cresencio Prd LLN %Prd Cresencio %Prd %Chg SPIROMETRY FVC (L) 5.60 4.73 3.95 118 FEV1 (L) 4.01 3.48 2.91 115 FEV1/FVC (%) 72 73 61 98 FEF 25-75% (L/sec) 2.85 2.61 2.18 109 Peak Flow (L/sec) 7.84 8.72 7.28 90 FIVC (L) 5.16 FIF Max (L/sec) 6.15 LUNG VOLUMES SVC (L) 5.77 4.85 4.05 119 IC (L) 3.94 3.45 2.88 114 ERV (L) 1.83 1.40 1.17 130 TGV (L) 4.21 3.98 3.18 106 RV (Pleth) (L) 2.38 2.58 2.06 92 TLC (Pleth) (L) 8.15 7.43 5.94 110 RV/TLC (Pleth) (%) 29 36 29 81 DIFFUSION DLCOunc 31.06 35.03 28.02 89 DL/VA 3.89 4.71 3.77 83 VA (L) 7.99 7.43 6.20 108 AIRWAYS Raw (cmH2O/L/s) 1.53 1.45 1.21 105 Gaw (L/s/cmH2O) 0.66 1.03 0.86 64 sRaw (cmH2O*s) 5.86 4.76 3.97 123 sGaw (1/cmH2O*s) 0.17 0.20 0.17 85 INTERPRETATION DATE OF SERVICE: October 03, 2012. PRIMARY CARE PROVIDER: Merlene Claudio N.P. Spirometry shows no evidence of obstructive airways disease, no bronchodilator testing was carried out. Lung volumes show no evidence of restriction. Diffusion capacity normal. Airways resistance normal. IMPRESSION: Normal pre-bronchodilator pulmonary function test. Clinical correlation recommended. Dictated by: ANA MARIA JERONIMO Dict Date: 10/07/12 Dict Time: 399 <Electronically signed by ANA MARIA JERONIMO> Date: 10/17/12 Anesthesia Assessment and Plan Anesthesia History Personal History: No History of Anesthesia Complications Family History: No Family History of Anesthesia Complications Exercise Tolerance Exercise Tolerance: Metabolic Equivalents>4 Pertinent Negatives Pertinent Negatives: No Symptoms of GERD, No Major Pulmonary Symptoms or Complaints and No History of CVA/TIA Cardiac & Pulmonary Exam Cardiac Exam: Normal S1/S2 Heart Sounds Pulmonary Exam: Clear Bilateral Breath Sounds Implantable Cardiac Device Does patient have a Pacemaker or an ICD?: No Airway Exam Known Difficult Airway: No Mallampati Class: 2 Mouth Opening: Normal (> 3cm) Thyromental Distance: Greater than 3 cm Neck Range of Motion: Full ROM Neck Circumference: Normal Teeth Condition: Normal Dentition ASA Classification ASA Score: ASA 2 Emergency Case?: No NPO Status NPO Status: NPO Clears >2 hours, Solids >8 hours Anesthesia Plan Resuscitation Status: Full Code Anesthesia Technique: General Anesthesia Airway Planned: Natural Airway Monitors Used: Standard Monitors
[2023-10-13 10:30] VITALS: BMI 22.9
--- NOTE | 2023-10-13 11:25 | BOWEL_PTH ---
PATIENT: Reggie Damon LOC: [facility] U#:[id number] AGE/SX: 83/M ROOM: RE10/13/[address]: Ike Guadalupe : 1940 BED: DIS: 10/13/2023 SPEC #: [id number] RECD: 10/13/23 13:09 STATUS: HI REShari #: [id number] VICTORIANO: 10/13/23 11:[address]: Ike Guadalupe DEPT: Surgical Specimen RECD BY: Ning Bliss ENTERED: 10/13/23 13:09 SP TYPE: Bowel OTHR DR: Rebeca Lange APRN Tissues: 1 - BIOPSY BOWEL Procedures: GROSS AND MICRO LEVEL 4 Comments: [id number]
[2023-10-13 11:40] VITALS: BP 103/62; PULSE 55; RESP 16; TEMP 36.4; O2SAT 97
[2023-10-13 12:05] VITALS: BP 122/70; PULSE 52; RESP 16; TEMP 36.6; O2SAT 98
--- NOTE | 2023-10-13 12:25 | W.COLOREPORT ---
Date of service: 10/13/23 Time of Service: 12:31 Colonoscopy Report Procedure Description: PROCEDURES PERFORMED: 1. Colonoscopy with cold forceps polypectomy PREOPERATIVE DIAGNOSIS: Surveillance colonoscopy POSTOPERATIVE DIAGNOSIS: Colon polyps, grade 1 internal hemorrhoids SURGEON: Laly Guadalupe MD INDICATION for procedure: The patient is a 83-year-old man due for surveillance. He does not have symptoms. He had an adenomatous polyp on his last colonoscopy 5 years ago. FINDINGS: Normal terminal ileum. In the descending colon a small 2-3 mm sessile polyp was removed with cold forcep technique. No other polyps were seen. Mild grade 1 internal hemorrhoids noted. No obvious diverticular disease. SURVEILLANCE interval/FOLLOW-UP: 5 years at the age of 88 as long as a good life expectancy exist at that time. SPECIMENS: yes EBL: Minimal COMPLICATIONS: None QUALITY of prep: Excellent Procedure in detail: The patient gave written consent and was in agreement with the indications, the potential risks as well as the benefits of the procedure. They were taken to the endoscopy suite and laid in the left lateral decubitus position. A timeout was performed and anesthesia was administered which was tolerated well. I started the procedure. Digital rectal and visual examination was performed and grossly within normal limits. A well-lubricated flexible colonoscope was then introduced and passed without any notable difficulty all the way to the cecum identified by the ileocecal valve and the appendiceal orifice. The TI was briefly intubated and looked normal. The scope was then slowly withdrawn with the above-noted findings. The patient tolerated the procedure well and was taken to the PACU in hemodynamically stable condition.
--- NOTE | 2023-10-13 12:25 | W.PM.DSUDISC ---
Date of service: 10/13/23 Time of Service: 12:25 Discharge Plan Disposition Patient Disposition: Home Condition: Good Discharge Details Attending Provider: Ike Guadalupe Primary Care Provider: Rebeca Lange Home Meds and New Rx's Prescriptions: No Action triamcinolone acetonide 0.1 % cream 1 applic TOPICAL BID Qty: 30 0RF bisacodyl [Dulcolax (bisacodyl)] 5 mg tablet,delayed release (DR/EC) 5 mg PO ONCE Qty: 4 0RF Patient Comments: Pt Having colonoscopy 10/13/23 Rx Instructions: Take per colonoscopy instructions provided by ordering providers office polyethylene glycol 3350 17 gram/dose powder 17 g PO ONCE Qty: 238 0RF Patient Comments: pt has colonoscopy on 10/13/23 Rx Instructions: Take per colonoscopy instructions provided by ordering providers office saw palmetto 450 mg capsule 450 mg PO DAILY Rx Instructions: give with food (meal/snack) cholecalciferol (vitamin D3) 25 mcg (1,000 unit) capsule 25 mcg PO DAILY calcium carbonate [Calcium 500] 500 mg calcium (1,250 mg) tablet 1,000 mg PO DAILY Discharge Instructions Additional Instructions: FINDINGS: A new small polyp was found today. This is why we do the colonoscopies. It is nothing to worry about. You probably should repeat another colonoscopy in 5 years but pathology results will dictate whether that is necessary or not. Activity:: Activity as Tolerated Diet:: As Tolerated
--- NOTE | 2023-10-13 12:32 | W.ANESPOSTOP ---
Postoperative Evaluation Date, Time and Location Date Performed: 10/13/23 Time Performed: 11:42 Patient Location: Day Surgery Unit Vital Signs Most Recent Imported Vital Signs: Most Recent Vital Signs Temp Pulse Resp BP Pulse Ox 36.6 C 52 L 16 122/70 98 10/13/23 12:05 10/13/23 12:05 10/13/23 12:05 10/13/23 12:05 10/13/23 12:05 Pain Score Most Recent Pain Score: Most Recent Pain Score Pain Level 0 10/13/23 12:05 Assessment Mental Status: Awake (Alert & Oriented to Patient Baseline) Airway and Respiratory Function: Patent airway with normal (patient baseline) respiratory exam Cardiovascular Function: Hemodynamically Stable Hydration Status: Adequately Hydrated Nausea & Vomiting: No Nausea or Vomiting Pain: Pt. Denies Any Pain Peripheral Nerve Block: Patient did not receive a nerve block
== END 2023-10-13 12:37 | disposition home or self-care (01) ==
PROVIDERS: PCP Nurse Practitioner; Visit Provider Student in an Organized Health Care Education/Training Program
PROC: 0DJD8ZZ Inspection of Lower Intestinal Tract, Via Natural or Artificial Opening Endoscopic (ICD-10-PCS; CPT 45378; principal; 2023-10-13 10:45)
DX: Z12.11 Encounter for screening for malignant neoplasm of colon (principal); K64.0 First degree hemorrhoids; D12.4 Benign neoplasm of descending colon
CPT/HCPCS: 45380; 00123; 88305; J2704

== ENCOUNTER 2024-09-08 11:47 | Outpatient (CLI) | payer MEDICARE, SELFPAY ==
[2024-09-08 12:09] LABS: Abs Immature Grans 0.03 10^3/uL (0.0-0.06); Absolute Basophil Count 0.06 10^3/uL (0.0-0.2); Absolute Eosinophil Count 0.18 10^3/uL (0.0-0.7); Absolute Monocyte Count 0.75 10^3/uL (0.1-0.8); Basophils % 0.4 %; Eosinophils % 1.2 %; HCT 48.1 % (40.0-50.0); HGB 15.5 g/dL (13.5-17.5); Immature Grans % 0.2 %; Lymphocytes % 60.8 %; MCH 29.4 pg (27.0-33.0); MCHC 32.2 % (32.0-36.0); MCV 91 fL (80-95); MPV 10.9 fL (8.0-11.0); Monocytes % 5.1 %; Neutrophils % 32.3 %; Platelet Count 233 10^3/uL (130-400); RBC 5.28 10^6/uL (4.36-5.78); RDW 13.7 % (11.8-14.1); RDW-SD 46.1 fL; WBC 14.63 10^3/uL (4.4-10.8)
[2024-09-08 12:11] LABS: Absolute Neutrophil Count 4.73 10^3/uL (1.2-6.7)
[2024-09-08 12:19] LABS: Diff Comment Diff Reviewed; RBC Morphology Normal
[2024-09-08 12:23] LABS: Bilirubin Negative (Negative); Blood Negative (Negative); Clarity Clear (Clear); Glucose Negative (Negative); Ketones Negative (Negative); Leukocyte Esterase Trace (Negative); Nitrite Negative (Negative); Urobilinogen 0.2 mg/dL (Up to 0.2)
[2024-09-08 12:26] LABS: Hemoglobin A1C 5.8 % (<5.7)
[2024-09-08 12:35] LABS: Calculated LDL 118 mg/dL (<100); Cholesterol 231 mg/dL (<200); HDL Cholesterol 98 mg/dL (>or=40); Triglyceride 78 mg/dL (<150)
[2024-09-08 12:44] LABS: Bacteria Negative HPF (Negative); C & S Indicated? No; Casts Negative LPF (Negative); Crystals Negative HPF (Negative); Epithelial Cells Rare HPF (Negative); Mucus Negative (Negative); RBC Negative HPF (0-2); WBC 0-2 HPF (0-5)
== END 2024-09-08 11:48 | disposition home or self-care (01) ==
LOC: LBO 11:47
PROVIDERS: PCP Nurse Practitioner; Visit Provider Family Medicine
DX: D64.9 Anemia, unspecified (principal); Z13.9 Encounter for screening, unspecified; R73.01 Impaired fasting glucose; R35.1 Nocturia; N40.1 Benign prostatic hyperplasia with lower urinary tract symptoms; I10 Essential (primary) hypertension
CPT/HCPCS: 36415; 80061; 84153; 81003; 81015; 83036; 84443; 85025

== ENCOUNTER 2024-10-09 14:45 | Outpatient (CLI) | payer MEDICARE, SELFPAY ==
[2024-10-09 16:50] LABS: TSH (W/Ref FT4) 3.11 uIU/mL (0.36-3.74)
== END 2024-10-09 14:46 | disposition home or self-care (01) ==
LOC: LBO 14:46
PROVIDERS: PCP Nurse Practitioner; Visit Provider Family Medicine
DX: R79.89 Other specified abnormal findings of blood chemistry (principal)
CPT/HCPCS: 36415; 84443

== ENCOUNTER 2025-01-05 18:36 | Outpatient (CLI) | payer MEDICARE, SELFPAY ==
[2025-01-05 16:15] LABS: ALT 23 U/L (16-63); AST 27 U/L (15-37); Albumin 3.7 g/dL (3.4-5.0); Alkaline Phosphatase 86 U/L (46-116); Anion Gap 8.2 mmol/L (3-11); BUN 23 mg/dL (7-18); Bilirubin, Total 0.5 mg/dL (0.2-1.0); CO2 29.8 mmol/L (21.0-32.0); Calcium 8.8 mg/dL (8.5-10.1); Chloride 103 mmol/L (98-107); Estimated GFR 66.61 (mL/min/1.73m2); Glucose 87 mg/dL (74-106); Potassium 4.0 mmol/L (3.5-5.1); Sodium 141 mmol/L (136-145); Total Protein 7.3 g/dL (6.4-8.2)
[2025-01-05 23:03] LABS: PSA, Diagnostic 4.5 ng/mL (<=6.5)
== END 2025-01-05 18:37 | disposition home or self-care (01) ==
LOC: LBO 18:38
PROVIDERS: PCP Nurse Practitioner; Visit Provider Family Medicine
DX: N40.0 Benign prostatic hyperplasia without lower urinary tract symptoms (principal); R97.20 Elevated prostate specific antigen [PSA]
CPT/HCPCS: 36415; 80053; 84153

== ENCOUNTER 2025-02-07 02:02 | Outpatient (CLI) | payer MEDICARE, SELFPAY ==
[2025-02-07 14:23] LABS: Abs Immature Grans 0.03 10^3/uL (0.0-0.06); HCT 44.2 % (40.0-50.0); HGB 14.3 g/dL (13.5-17.5); Immature Grans % 0.2 %; MCH 29.2 pg (27.0-33.0); MCHC 32.4 % (32.0-36.0); MCV 90 fL (80-95); MPV 10.7 fL (8.0-11.0); Platelet Count 222 10^3/uL (130-400); RBC 4.89 10^6/uL (4.36-5.78); RDW 13.6 % (11.8-14.1); RDW-SD 45.1 fL; WBC 14.98 10^3/uL (4.4-10.8)
[2025-02-07 14:48] LABS: RBC Morphology Normal
[2025-02-07 15:45] LABS: Uric Acid 6.9 mg/dL (3.5-7.2)
[2025-02-07 15:46] LABS: ALT 18 U/L (16-63); AST 15 U/L (15-37); Albumin 3.6 g/dL (3.4-5.0); Alkaline Phosphatase 101 U/L (46-116); Anion Gap 8.3 mmol/L (3-11); BUN 19 mg/dL (7-18); Bilirubin, Total 0.7 mg/dL (0.2-1.0); CO2 29.7 mmol/L (21.0-32.0); Calcium 9.1 mg/dL (8.5-10.1); Chloride 103 mmol/L (98-107); Estimated GFR 66.61 (mL/min/1.73m2); Glucose 101 mg/dL (74-106); LDH 159 U/L (85-227); Potassium 4.4 mmol/L (3.5-5.1); Sodium 141 mmol/L (136-145); Total Protein 7.4 g/dL (6.4-8.2)
== END 2025-02-07 02:03 | disposition home or self-care (01) ==
PROVIDERS: Visit Provider Internal Medicine Hematology & Oncology
DX: M10.9 Gout, unspecified (principal); C91.10 Chronic lymphocytic leukemia of B-cell type not having achieved remission
CPT/HCPCS: 36415; 80053; 82784; 83615; 84550; 85025

== ENCOUNTER → 2025-03-14 01:07 | Outpatient (CLI) | payer MEDICARE, SELFPAY ==
--- NOTE | 2025-03-14 13:10 | DI.RAD_ITS ---
Exam(s) XR FOOT RT COMPLETE EXAM: XR FOOT RT COMPLETE CLINICAL HISTORY: Right foot pain,m79.671. TECHNIQUE: 2D digital imaging was performed of the right foot. Three images were obtained. AP, oblique and lateral views were obtained. COMPARISON: No exams were available for comparison FINDINGS: BONES: No acute fracture is present. No bony destructive lesion is seen. There is a well-circumscribed lucent lesion in the proximal cortex of the 3rd metatarsal. No periostitis or fracture is seen. It it has a benign appearance. JOINTS: No dislocation present. There are mild degenerative changes seen in the foot particularly the interphalangeal joints of the toes in the 1st MTP joint. SOFT TISSUE: Vascular calcifications are present. There is a 4 mm linear density in the soft tissues between the heads of the 4th and 5th metatarsal bones which may represent a foreign body. IMPRESSION: 1. No acute abnormality is present. 2. 4 mm linear density between the heads of the 4th and 5th metatarsals which may represent a foreign body. DATA REPOSITORY: RADIATION DOSE DELIVERED:
--- NOTE | 2025-03-14 13:10 | DI.RAD_ITS ---
Exam(s) XR FOOT LT COMPLETE EXAM: XR FOOT LT COMPLETE CLINICAL HISTORY: Left foot pain,m79.672. TECHNIQUE: 2D digital imaging was performed of the left foot. Three images were obtained. AP, oblique and lateral views were obtained. COMPARISON: No exams were available for comparison FINDINGS: BONES: No acute fracture is present. No bony destructive lesion is seen. JOINTS: No dislocation present. There are mild degenerative changes seen at the 1st MTP joint characterized by asymmetric joint space narrowing and osteophytes. There also mild degenerative changes seen in the interphalangeal joints of the toes. SOFT TISSUE: Atherosclerotic calcification is present. There is a 3 mm long density in the soft tissues medial to the middle phalanx of the 5th toe. There is soft tissue swelling of the 5th toe. This may represent a foreign body. IMPRESSION: 1. Degenerative changes seen in the left foot. 2. 3 mm linear density in the soft tissues of the 5th toe. This may represent a foreign body. Please correlate with the patient's site of pain. DATA REPOSITORY: RADIATION DOSE DELIVERED:
== END ==
PROVIDERS: PCP Family Medicine; Visit Provider Podiatrist
DX: M79.671 Pain in right foot (principal); M79.672 Pain in left foot; M72.2 Plantar fascial fibromatosis; M76.62 Achilles tendinitis, left leg; M21.612 Bunion of left foot; M10.072 Idiopathic gout, left ankle and foot
CPT/HCPCS: 20550; 64455; 99203; J0702; J1100; 73630